=== PATIENT | female | born 1970 | race Hispanic/Latino ===

== ENCOUNTER 2019-07-31 21:51 | Emergency (ER) | payer OTHER ==
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
[2019-08-01 01:12] VITALS: TEMP 98.8
[2019-08-01 01:13] VITALS: BP 139/80; O2SAT 99
--- NOTE | 2019-08-01 07:41 | RAD REPORT ---
EXAM DESCRIPTION: RAD - Elbow Right 2 View - 07/31/2019 11:34 pm CLINICAL HISTORY: Right elbow pain FINDINGS: Limited two view series No fracture or dislocation seen
== END 2019-08-01 00:33 | disposition home or self-care (01) ==
LOC: ER 21:51
DX: S50.01XA Contusion of right elbow, initial encounter (principal); S13.9XXA Sprain of joints and ligaments of unspecified parts of neck, initial encounter; S23.3XXA Sprain of ligaments of thoracic spine, initial encounter; V43.52XA Car driver injured in collision with other type car in traffic accident, initial encounter; Y93.89 Activity, other specified; Y92.410 Unspecified street and highway as the place of occurrence of the external cause; E11.9 Type 2 diabetes mellitus without complications; J45.909 Unspecified asthma, uncomplicated
CPT/HCPCS: 96372; 99284